=== PATIENT | male | born 1955 | race Caucasian/White ===

== ENCOUNTER 2018-12-02 16:49 | Emergency (ER) | payer OTHER, MEDICAID, SELFPAY ==
[2018-12-02 16:54] VITALS: BP 136/81; PULSE 87; RESP 18; TEMP 37.1; O2SAT 97; BMI 24.4
--- NOTE | 2018-12-02 17:00 | DI.RAD.S_ITS ---
PROCEDURE: XR ACUTE ABDOMEN SERIES INDICATIONS: L side abd pain, hx of polycynthemia and constipation TECHNIQUE: One view chest and two views of the abdomen were acquired. COMPARISON: None. FINDINGS: Surgical changes and devices: None. Chest: Lungs are clear. Heart size is normal. No pleural effusions. No pneumoperitoneum. Abdomen: Bowel gas pattern is normal. No suspicious calcifications. Splenomegaly is present. Bones: No suspicious bony lesions. IMPRESSION: 1. No acute process. 2. Splenomegaly. Dictated by: Chad Garcia M.D. on 12/02/2018 at 16:36 Approved by: Chad Garcia M.D. on 12/02/2018 at 16:37
[2018-12-02 17:41] LABS: Hematocrit 46.3 % (41-53); Hemoglobin 15.3 g/dL (13.5-17.5); Mean Corpuscular HGB Conc 33.1 % (30-36); Mean Corpuscular Volume 78.7 fL (80-100); Platelet Count 294 X10^3/uL (150-400); Red Blood Cell Count 5.89 X10^6/uL (4.5-5.9); Red Cell Distribution Width 18.5 % (11.6-14.8); White Blood Cell Count 9.4 X10^3/uL (4.5-11.0)
[2018-12-02 17:43] LABS: Add Manual Diff / Slide Review YES
[2018-12-02 17:45] LABS: INR 1.2 (0.9-1.3); Prothrombin Time 14.1 SECONDS (10.1-12.7)
[2018-12-02 17:48] LABS: PTT Partial Thromboplastin Tim 41 SECONDS (26.4-36.2)
[2018-12-02 17:50] LABS: Alanine Aminotransferase 15 IU/L (21-72); Albumin 4.5 g/dL (3.5-5.0); Albumin Globulin Ratio 1.7 (1.0-2.8); Alkaline Phosphatase 73 U/L (38-126); Aspartate Aminotransferase 19 IU/L (17-59); BUN Creatinine Ratio 16.7 (6-22); Bilirubin Total 0.7 mg/dL (0.2-1.3); Blood Urea Nitrogen 15 mg/dL (9-20); Calcium 9.3 mg/dL (8.4-10.2); Carbon Dioxide 31 mmol/L (22-32); Chloride 101 mmol/L (98-107); Estimated Glomerular Filt Rate > 60.0 mL/min (>60); Globulin 2.7 g/dL (1.7-4.1); Glucose 96 mg/dL (80-110); HEMOLYSIS < 15 (0-50); Potassium 4.9 mmol/L (3.4-5.1); Sodium 140 mmol/L (137-145); Total Protein 7.2 g/dL (6.3-8.2)
[2018-12-02 18:13] LABS: Neutrophils Absolute Manual 7144 /uL (3000-5900); Total Cells Counted 100
[2018-12-02 18:15] LABS: Anisocytosis 1+; Poikilocytosis 1+
--- NOTE | 2018-12-02 19:01 | DI.CT.S_ITS ---
PROCEDURE: CT ABDOMEN PELVIS W CON INDICATIONS: left uppper swelling pain with spleenomegaly TECHNIQUE: After the administration of oral and intravenous contrast, 5 mm thick sections acquired from the diaphragms to the symphysis. 5 mm thick coronal and sagittal reformats were performed. For radiation dose reduction, the following was used: automated exposure control, adjustment of mA and/or kV according to patient size. COMPARISON: [facility], CT, ABDOMEN/PELVIS WITH CONTRAST, 07/21/2015, 10:30. FINDINGS: Image quality: Diagnostic ABDOMEN: Lung bases: Lung bases are clear. Heart size is normal. Solid organs: The spleen is markedly enlarged and measures up to approximately 29 cm in craniocaudal dimension (previously measuring up to 23 cm in craniocaudal dimension. No focal splenic lesions are identified. However, there is a hypoechoic region identified along the posterolateral aspect of the inferior spleen, correlating with an area of possible laceration on the prior study. No perisplenic fluid is evident. The spleen is noted to extend into the pelvis. The liver is normal in size. A small hepatic cyst is present within the anterior segment of the right hepatic lobe. Cholelithiasis is present. The adrenals and kidneys are within normal limits. There is inferior displacement of the left kidney by the enlarged spleen with associated mass effect. The pancreas is within normal limits. Peritoneum and bowel: Stomach is unremarkable. The small bowel loops are nondilated. The colon is grossly within normal limits. The appendix is not definitely seen. No free fluid, loculated fluid collection or free air is evident. Nodes and vessels: No retroperitoneal or mesenteric adenopathy. Aorta and inferior vena cava are normal in caliber. There is aortic atherosclerosis. Bones: No acute fracture suspicious osseous lesions present. Age-appropriate degenerative changes of the spine are present. PELVIS: Genitourinary: Bladder wall thickness is normal. The prostate is mildly enlarged and contains coarse calcification. Miscellaneous: No inguinal hernias or adenopathy. Bones: No suspicious bony lesions. No acute pelvic fractures are identified. Mild to moderate degenerative changes of the pelvic joints are evident. IMPRESSION: 1. Marked splenomegaly, increased since the prior study. No evidence of an acute laceration or contusion is appreciated. 2. No ascites. 3. No bowel obstruction. 4. Enlarged prostate. 5. No lymphadenopathy. Dictated by: Jax Hong M.D. on 12/02/2018 at 19:58 Approved by: Jax Hong M.D. on 12/02/2018 at 20:04
--- NOTE | 2018-12-02 19:03 | ED.ABDPAIN ---
HPI - Abdominal Pain General Chief Complaint: Abdominal Pain Stated Complaint: Splene Time Seen by Provider: 12/02/18 18:48 Source: patient Mode of arrival: ambulatory Limitations: no limitations History of Present Illness HPI narrative: Patient is a 63-year-old male who presents with left upper quadrant pain and swelling. He says over last month it has gotten significantly worse. He says he would get blood drained off of him and his credit review officer wanted him to take hydroxyurea however he refused. The credit review officer has left it does not sound like he seen anyone since. He says his abdomen is getting bigger and more hard on left upper quadrant. He has not had any fever is he has very small bowel movements he has no vomiting no nausea. MD complaint: abdominal pain Related Data Home Medications Medication Instructions Recorded Confirmed [PROBIOTIC] 25,000,000 QDAY #0 01/11/17 aspirin 81 mg PO QDAY #0 01/11/17 12/02/18 ibuprofen 400 mg TIDP PRN #0 01/11/17 multivitamin [Multiple Vitamins] 1 tab PO QDAY #0 01/11/17 Allergies Allergy/AdvReac Type Severity Reaction Status Date / Time No Known Allergies Allergy Uncoded 09/27/17 12:45 Review of Systems Review of Systems GENERAL: Denies chills, fatigue, malaise, fever, sweats, travel HEENT: Denies sinus pain, ear pain, sore throat, difficulty swallowing, neck pain RESPIRATORY: Denies dyspnea, cough, wheezing, hemoptysis, sputum. CARDIOVASCULAR: Denies chest pain, palpitations, orthopnea, edema GASTROINTESTINAL: See HPI : Denies dysuria, frequency, incontinence, hematuria, urinary retention, flank pain. MUSCULOSKELETAL: Denies weakness, joint pain, or bony pain SKIN: No rash, no erythema, no pruritus NEUROLOGIC: Denies weakness, dizziness, headache, numbness, change in speech, confusion PSYCHIATRIC: No concerning psychosocial issues. 12 point review of systems is negative except for those stated above and HPI [facility] Medical History Polycythemia (Acute) Social History Smoking Status: Current every day smoker Social History Smoking Status: Current every day smoker Exam Initial Vital Signs Initial Vital Signs: Vital Signs Temperature 98.7 F 12/02/18 16:54 Pulse Rate 87 12/02/18 16:54 Respiratory Rate 18 12/02/18 16:54 Blood Pressure 136/81 12/02/18 16:54 Pulse Oximetry 97 12/02/18 16:54 GENERAL: Alert well-appearing male no acute distress HEENT: Head atraumatic,EOMI, pupils reactive CARDIOVASCULAR: Regular rate and rhythm without murmurs, rubs or gallops. RESPIRATORY: Breath sounds equal bilaterally, no wheezes rales or rhonchi. ABDOMEN: Abdomen is slightly distended and hard over on the left upper quadrant splenomegaly definitely present. soft in other quadrants EXTREMITIES: Normal range of motion, no clubbing or edema. Neurovascularly intact NEUROLOGICAL: Alert and oriented x4.Normal gait and speech. Cranial nerves II through XII grossly intact. SKIN: Warm, dry, no laceration, no petechiae, no rashes or lesions. Course Orders Ordered: ED Orders 12/02/18 17:00 XR acute abdomen series Stat 12/02/18 17:30 Complete Blood Count AUTO DIFF Stat Comprehensive Metabolic Panel Stat PT [Prothrombin Time INR] Stat Partial Thromboplastin Time Stat 12/02/18 19:01 CT abdomen pelvis w con Stat Vital Signs - 8 hr 12/02/18 20:12 Pulse Rate 64 Respiratory Rate 17 Blood Pressure [Right Arm] 119/65 Pulse Oximetry 95 MDM - Abdominal Pain Lab Data Attestation: I reviewed the patient's lab results. Result diagrams: 12/02/18 17:30 12/02/18 17:30 Lab Results 12/02/18 12/02/18 12/02/18 Range/Units 17:30 17:30 17:30 WBC 9.4 (4.5-11.0) X10^3/uL RBC 5.89 (4.5-5.9) X10^6/uL Hgb 15.3 (13.5-17.5) g/dL Hct 46.3 (41-53) % MCV 78.7 L (80-100) fL MCH 26.0 (26-34) PG MCHC 33.1 (30-36) % RDW 18.5 H (11.6-14.8) % Plt Count 294 (150-400) X10^3/uL Neut % (Auto) Not Reportable Lymph % (Auto) Not Reportable [place] % (Auto) Not Reportable Eos % (Auto) Not Reportable Baso % (Auto) Not Reportable Lymph # (Auto) Not Reportable [place] # (Auto) Not Reportable Baso # (Auto) Not Reportable Total Counted 100 Seg Neutrophils % 73.0 H (38-70) % Band Neutrophils % 3.0 (3-7) % Lymphocytes % (Manual) 11.0 L (25-45) % Monocytes % (Manual) 5.0 (2-11) % Eosinophils % (Manual) 3.0 (2-4) % Basophils % (Manual) 3.0 H (0-1) % Metamyelocytes % 1.0 H (-0) % Myelocytes % 1.0 H (-0) % Neutrophils # (Manual) 7144 H (8595-1456) /uL RBC Morphology See below Poikilocytosis 1+ H Anisocytosis 1+ H PT 14.1 H (10.1-12.7) SECONDS INR 1.2 (0.9-1.3) APTT 41 H (26.4-36.2) SECONDS Sodium 140 (137-145) mmol/L Potassium 4.9 (3.4-5.1) mmol/L Chloride 101 (98-107) mmol/L Carbon Dioxide 31 (22-32) mmol/L BUN 15 (9-20) mg/dL Creatinine 0.90 (0.66-1.25) mg/dL Estimated GFR > 60.0 (>60) mL/min BUN/Creatinine Ratio 16.7 (6-22) Glucose 96 (80-110) mg/dL Calcium 9.3 (8.4-10.2) mg/dL Total Bilirubin 0.7 (0.2-1.3) mg/dL AST 19 (17-59) IU/L ALT 15 L (21-72) IU/L Alkaline Phosphatase 73 (38-126) U/L Total Protein 7.2 (6.3-8.2) g/dL Albumin 4.5 (3.5-5.0) g/dL Globulin 2.7 (1.7-4.1) g/dL Albumin/Globulin Ratio 1.7 (1.0-2.8) Imaging Data Abdominal x-ray: Radiologist's impression: PROCEDURE: XR ACUTE ABDOMEN SERIES INDICATIONS: L side abd pain, hx of polycynthemia and constipation TECHNIQUE: One view chest and two views of the abdomen were acquired. COMPARISON: None. FINDINGS: Surgical changes and devices: None. Chest: Lungs are clear. Heart size is normal. No pleural effusions. No pneumoperitoneum. Abdomen: Bowel gas pattern is normal. No suspicious calcifications. Splenomegaly is present. Bones: No suspicious bony lesions. IMPRESSION: 1. No acute process. 2. Splenomegaly. Dictated by: Chad Garcia M.D. on 12/02/2018 at 16:36 CT scan - abdomen: Radiologist's impression: PROCEDURE: CT ABDOMEN PELVIS W CON INDICATIONS: left uppper swelling pain with spleenomegaly TECHNIQUE: After the administration of oral and intravenous contrast, 5 mm thick sections acquired from the diaphragms to the symphysis. 5 mm thick coronal and sagittal reformats were performed. For radiation dose reduction, the following was used: automated exposure control, adjustment of mA and/or kV according to patient size. COMPARISON: [facility], CT, ABDOMEN/PELVIS WITH CONTRAST, 07/21/2015, 10:30. FINDINGS: Image quality: Diagnostic ABDOMEN: Lung bases: Lung bases are clear. Heart size is normal. Solid organs: The spleen is markedly enlarged and measures up to approximately 29 cm in craniocaudal dimension (previously measuring up to 23 cm in craniocaudal dimension. No focal splenic lesions are identified. However, there is a hypoechoic region identified along the posterolateral aspect of the inferior spleen, correlating with an area of possible laceration on the prior study. No perisplenic fluid is evident. The spleen is noted to extend into the pelvis. The liver is normal in size. A small hepatic cyst is present within the anterior segment of the right hepatic lobe. Cholelithiasis is present. The adrenals and kidneys are within normal limits. There is inferior displacement of the left kidney by the enlarged spleen with associated mass effect. The pancreas is within normal limits. Peritoneum and bowel: Stomach is unremarkable. The small bowel loops are nondilated. The colon is grossly within normal limits. The appendix is not definitely seen. No free fluid, loculated fluid collection or free air is evident. Nodes and vessels: No retroperitoneal or mesenteric adenopathy. Aorta and inferior vena cava are normal in caliber. There is aortic atherosclerosis. Bones: No acute fracture suspicious osseous lesions present. Age-appropriate degenerative changes of the spine are present. PELVIS: Genitourinary: Bladder wall thickness is normal. The prostate is mildly enlarged and contains coarse calcification. Miscellaneous: No inguinal hernias or adenopathy. Bones: No suspicious bony lesions. No acute pelvic fractures are identified. Mild to moderate degenerative changes of the pelvic joints are evident. IMPRESSION: 1. Marked splenomegaly, increased since the prior study. No evidence of an acute laceration or contusion is appreciated. 2. No ascites. 3. No bowel obstruction. 4. Enlarged prostate. 5. No lymphadenopathy. Dictated by: Jax Hong M.D. on 12/02/2018 at 19:58 MDM Narrative Medical decision making narrative: The patient overall appears well. He has an extremely large spleen. I discussed with him the importance of getting back into Hematology-Oncology. He has in the past refused medication I discussed with him that he needs to take medication. I discussed with him how he cannot dissipate in any sort of risky activities and he is at high risk for rupture. He understands this. He will call Oncology in the morning. Discharge Plan Departure Patient Disposition: Home Clinical Impression: Splenomegaly Discharge Date/Time: 12/02/18 20:43 Interventions: ED Discharge Assessment Last Done: 12/02/18 20:42 Instructions: DI for Enlarged Spleen Activity Restrictions/Additional Instructions: *You have been diagnosed with enlarged spleen *What to do: Your spleen is extremely large. If this ruptures you have a risk of bleeding out or dying. Please avoid any high risk activities. *Continue to take medications as directed *Follow up with your primary care provider in 2-3 days. Call hematology 1st thing tomorrow morning to schedule an appointment. You may need a referral in which case please contact your primary care physician *Return to ER if you should have increasing pain, shortness of breath or any new, worsening or concerning symptoms Prescriptions: No Action multivitamin [Multiple Vitamins] 1 EACH tablet 1 tab PO QDAY Qty: 0 RF: 0 ibuprofen 200 MG capsule 400 mg TIDP PRNQty: 0 RF: 0 aspirin 81 MG tablet,chewable 81 mg PO QDAY Qty: 0 RF: 0 [PROBIOTIC] 25,000,000 QDAY Qty: 0 RF: 0 Referrals: Luis Fox MD [Physician] - Raoul Hair MD [Physician] - Issa Lowe MD [Physician] -
--- NOTE | 2018-12-02 19:08 | ED_ITS ---
HPI - Abdominal Pain General Chief Complaint: Abdominal Pain Stated Complaint: Splene Time Seen by Provider: 12/02/18 18:48 Source: patient Mode of arrival: ambulatory Limitations: no limitations History of Present Illness HPI narrative: Patient is a 63-year-old male who presents with left upper quadrant pain and swelling. He says over last month it has gotten significantly worse. He says he would get blood drained off of him and his solder leveler printed circuit boards wanted him to take hydroxyurea however he refused. The solder leveler printed circuit boards has left it does not sound like he seen anyone since. He says his abdomen is getting bigger and more hard on left upper quadrant. He has not had any fever is he has very small bowel movements he has no vomiting no nausea. MD complaint: abdominal pain Related Data Home Medications Medication Instructions Recorded Confirmed [PROBIOTIC] 25,000,000 QDAY #0 01/11/17 aspirin 81 mg PO QDAY #0 01/11/17 12/02/18 ibuprofen 400 mg TIDP PRN #0 01/11/17 multivitamin [Multiple Vitamins] 1 tab PO QDAY #0 01/11/17 Allergies Allergy/AdvReac Type Severity Reaction Status Date / Time No Known Allergies Allergy Uncoded 09/27/17 12:45 Review of Systems Review of Systems GENERAL: Denies chills, fatigue, malaise, fever, sweats, travel HEENT: Denies sinus pain, ear pain, sore throat, difficulty swallowing, neck pain RESPIRATORY: Denies dyspnea, cough, wheezing, hemoptysis, sputum. CARDIOVASCULAR: Denies chest pain, palpitations, orthopnea, edema GASTROINTESTINAL: See HPI : Denies dysuria, frequency, incontinence, hematuria, urinary retention, flank pain. MUSCULOSKELETAL: Denies weakness, joint pain, or bony pain SKIN: No rash, no erythema, no pruritus NEUROLOGIC: Denies weakness, dizziness, headache, numbness, change in speech, confusion PSYCHIATRIC: No concerning psychosocial issues. 12 point review of systems is negative except for those stated above and HPI [facility] Medical History Polycythemia (Acute) Social History Smoking Status: Current every day smoker Social History Smoking Status: Current every day smoker Exam Initial Vital Signs Initial Vital Signs: Vital Signs Temperature 98.7 F 12/02/18 16:54 Pulse Rate 87 12/02/18 16:54 Respiratory Rate 18 12/02/18 16:54 Blood Pressure 136/81 12/02/18 16:54 Pulse Oximetry 97 12/02/18 16:54 GENERAL: Alert well-appearing male no acute distress HEENT: Head atraumatic,EOMI, pupils reactive CARDIOVASCULAR: Regular rate and rhythm without murmurs, rubs or gallops. RESPIRATORY: Breath sounds equal bilaterally, no wheezes rales or rhonchi. ABDOMEN: Abdomen is slightly distended and hard over on the left upper quadrant splenomegaly definitely present. soft in other quadrants EXTREMITIES: Normal range of motion, no clubbing or edema. Neurovascularly intact NEUROLOGICAL: Alert and oriented x4.Normal gait and speech. Cranial nerves II through XII grossly intact. SKIN: Warm, dry, no laceration, no petechiae, no rashes or lesions. Course Orders Ordered: ED Orders 12/02/18 17:00 XR acute abdomen series Stat 12/02/18 17:30 Complete Blood Count AUTO DIFF Stat Comprehensive Metabolic Panel Stat PT [Prothrombin Time INR] Stat Partial Thromboplastin Time Stat 12/02/18 19:01 CT abdomen pelvis w con Stat Vital Signs - 8 hr 12/02/18 20:12 Pulse Rate 64 Respiratory Rate 17 Blood Pressure [Right Arm] 119/65 Pulse Oximetry 95 MDM - Abdominal Pain Lab Data Attestation: I reviewed the patient's lab results. Result diagrams: 12/02/18 17:30 12/02/18 17:30 Lab Results 12/02/18 12/02/18 12/02/18 Range/Units 17:30 17:30 17:30 WBC 9.4 (4.5-11.0) X10^3/uL RBC 5.89 (4.5-5.9) X10^6/uL Hgb 15.3 (13.5-17.5) g/dL Hct 46.3 (41-53) % MCV 78.7 L (80-100) fL MCH 26.0 (26-34) PG MCHC 33.1 (30-36) % RDW 18.5 H (11.6-14.8) % Plt Count 294 (150-400) X10^3/uL Neut % (Auto) Not Reportable Lymph % (Auto) Not Reportable [place] % (Auto) Not Reportable Eos % (Auto) Not Reportable Baso % (Auto) Not Reportable Lymph # (Auto) Not Reportable [place] # (Auto) Not Reportable Baso # (Auto) Not Reportable Total Counted 100 Seg Neutrophils % 73.0 H (38-70) % Band Neutrophils % 3.0 (3-7) % Lymphocytes % (Manual) 11.0 L (25-45) % Monocytes % (Manual) 5.0 (2-11) % Eosinophils % (Manual) 3.0 (2-4) % Basophils % (Manual) 3.0 H (0-1) % Metamyelocytes % 1.0 H (-0) % Myelocytes % 1.0 H (-0) % Neutrophils # (Manual) 7144 H (2027-9248) /uL RBC Morphology See below Poikilocytosis 1+ H Anisocytosis 1+ H PT 14.1 H (10.1-12.7) SECONDS INR 1.2 (0.9-1.3) APTT 41 H (26.4-36.2) SECONDS Sodium 140 (137-145) mmol/L Potassium 4.9 (3.4-5.1) mmol/L Chloride 101 (98-107) mmol/L Carbon Dioxide 31 (22-32) mmol/L BUN 15 (9-20) mg/dL Creatinine 0.90 (0.66-1.25) mg/dL Estimated GFR > 60.0 (>60) mL/min BUN/Creatinine Ratio 16.7 (6-22) Glucose 96 (80-110) mg/dL Calcium 9.3 (8.4-10.2) mg/dL Total Bilirubin 0.7 (0.2-1.3) mg/dL AST 19 (17-59) IU/L ALT 15 L (21-72) IU/L Alkaline Phosphatase 73 (38-126) U/L Total Protein 7.2 (6.3-8.2) g/dL Albumin 4.5 (3.5-5.0) g/dL Globulin 2.7 (1.7-4.1) g/dL Albumin/Globulin Ratio 1.7 (1.0-2.8) Imaging Data Abdominal x-ray: Radiologist's impression: PROCEDURE: XR ACUTE ABDOMEN SERIES INDICATIONS: L side abd pain, hx of polycynthemia and constipation TECHNIQUE: One view chest and two views of the abdomen were acquired. COMPARISON: None. FINDINGS: Surgical changes and devices: None. Chest: Lungs are clear. Heart size is normal. No pleural effusions. No pneumoperitoneum. Abdomen: Bowel gas pattern is normal. No suspicious calcifications. Splenomegaly is present. Bones: No suspicious bony lesions. IMPRESSION: 1. No acute process. 2. Splenomegaly. Dictated by: Chad Garcia M.D. on 12/02/2018 at 16:36 CT scan - abdomen: Radiologist's impression: PROCEDURE: CT ABDOMEN PELVIS W CON INDICATIONS: left uppper swelling pain with spleenomegaly TECHNIQUE: After the administration of oral and intravenous contrast, 5 mm thick sections acquired from the diaphragms to the symphysis. 5 mm thick coronal and sagittal reformats were performed. For radiation dose reduction, the following was used: automated exposure control, adjustment of mA and/or kV according to patient size. COMPARISON: [facility], CT, ABDOMEN/PELVIS WITH CONTRAST, 07/21/2015, 10:30. FINDINGS: Image quality: Diagnostic ABDOMEN: Lung bases: Lung bases are clear. Heart size is normal. Solid organs: The spleen is markedly enlarged and measures up to approximately 29 cm in craniocaudal dimension (previously measuring up to 23 cm in craniocaudal dimension. No focal splenic lesions are identified. However, there is a hypoechoic region identified along the posterolateral aspect of the inferior spleen, correlating with an area of possible laceration on the prior study. No perisplenic fluid is evident. The spleen is noted to extend into the pelvis. The liver is normal in size. A small hepatic cyst is present within the anterior segment of the right hepatic lobe. Cholelithiasis is present. The adrenals and kidneys are within normal limits. There is inferior displacement of the left kidney by the enlarged spleen with associated mass effect. The pancreas is within normal limits. Peritoneum and bowel: Stomach is unremarkable. The small bowel loops are nondilated. The colon is grossly within normal limits. The appendix is not definitely seen. No free fluid, loculated fluid collection or free air is evident. Nodes and vessels: No retroperitoneal or mesenteric adenopathy. Aorta and i nferior vena cava are normal in caliber. There is aortic atherosclerosis. Bones: No acute fracture suspicious osseous lesions present. Age-appropriate degenerative changes of the spine are present. PELVIS: Genitourinary: Bladder wall thickness is normal. The prostate is mildly enlar ged and contains coarse calcification. Miscellaneous: No inguinal hernias or adenopathy. Bones: No suspicious bony lesions. No acute pelvic fractures are identified. Mild to moderate degenerative changes of the pelvic joints are evident. IMPRESSION: 1. Marked splenomegaly, increased since the prior study. No evidence of an acute laceration or contusion is appreciated. 2. No ascites. 3. No bowel obstruction. 4. Enlarged prostate. 5. No lymphadenopathy. Dictated by: Jax Hong M.D. on 12/02/2018 at 19:58 MDM Narrative Medical decision making narrative: The patient overall appears well. He has an extremely large spleen. I discussed with him the importance of getting back into Hematology-Oncology. He has in the past refused medication I discussed with him that he needs to take medication. I discussed with him how he cannot dissipate in any sort of risky activities and he is at high risk for rupture. He understands this. He will call Oncology in the morning. Discharge Plan Departure Patient Disposition: Home Clinical Impression: Splenomegaly Discharge Date/Time: 12/02/18 20:43 Interventions: ED Discharge Assessment Last Done: 12/02/18 20:42 Instructions: DI for Enlarged Spleen Activity Restrictions/Additional Instructions: *You have been diagnosed with enlarged spleen *What to do: Your spleen is extremely large. If this ruptures you have a risk of bleeding out or dying. Please avoid any high risk activities. *Continue to take medications as directed *Follow up with your primary care provider in 2-3 days. Call hematology 1st thing tomorrow morning to schedule an appointment. You may need a referral in which case please contact your primary care physician *Return to ER if you should have increasing pain, shortness of breath or any new, worsening or concerning symptoms Prescriptions: No Action multivitamin [Multiple Vitamins] 1 EACH tablet 1 tab PO QDAY Qty: 0 RF: 0 ibuprofen 200 MG capsule 400 mg TIDP PRNQty: 0 RF: 0 aspirin 81 MG tablet,chewable 81 mg PO QDAY Qty: 0 RF: 0 [PROBIOTIC] 25,000,000 QDAY Qty: 0 RF: 0 Referrals: Luis Fox MD [Physician] - Raoul Hair MD [Physician] - Issa Lowe MD [Physician] -
[2018-12-02 20:12] VITALS: BP 119/65; PULSE 64; RESP 17; O2SAT 95
== END 2018-12-02 20:43 | disposition home or self-care (01) ==
PROVIDERS: Emergency Medicine; Emergency Provider Emergency Medicine
DX: R16.1 Splenomegaly, not elsewhere classified (principal)
CPT/HCPCS: 36415; 74022; 74177; 80053; 85025; 85610; 85730; 99282; 99284; Q9967

== ENCOUNTER → 2018-12-11 11:45 | Outpatient (CLI) | payer OTHER, MEDICAID, SELFPAY ==
[2018-12-11 12:09] LABS: Hematocrit 47.8 % (41-53); Hemoglobin 15.7 g/dL (13.5-17.5); Mean Corpuscular HGB Conc 32.8 % (30-36); Mean Corpuscular Hemoglobin 25.7 PG (26-34); Mean Corpuscular Volume 78.2 fL (80-100); Platelet Count 355 X10^3/uL (150-400); Red Blood Cell Count 6.11 X10^6/uL (4.5-5.9); Red Cell Distribution Width 18.5 % (11.6-14.8); White Blood Cell Count 11.3 X10^3/uL (4.5-11.0)
[2018-12-11 12:11] LABS: Add Manual Diff / Slide Review YES
[2018-12-11 12:36] LABS: 585 Gram Check PASS; Amount Collected in g 585 GRAM; Dizziness NO; Postdiastolic BP 89; Postsystolic BP 140; Prediastolic 91; Presystolic 145; Pulse 87; Site of phlebotomy LAC; Swelling NO; Therapeutic Phleb Comment NO COMMENT; Zero Check Sebra Scale PASS
[2018-12-11 12:58] LABS: Neutrophils Absolute Manual 9040 /uL (3000-5900); Total Cells Counted 100
[2018-12-11 13:03] LABS: RBC Morphology Normal Morphology
[2018-12-11 13:45] LABS: Alanine Aminotransferase 19 IU/L (21-72); Albumin 4.5 g/dL (3.5-5.0); Albumin Globulin Ratio 1.6 (1.0-2.8); Alkaline Phosphatase 88 U/L (38-126); Aspartate Aminotransferase 20 IU/L (17-59); BUN Creatinine Ratio 17.8 (6-22); Blood Urea Nitrogen 16 mg/dL (9-20); Calcium 9.2 mg/dL (8.4-10.2); Carbon Dioxide 29 mmol/L (22-32); Chloride 101 mmol/L (98-107); Estimated Glomerular Filt Rate > 60.0 mL/min (>60); Globulin 2.8 g/dL (1.7-4.1); Glucose 76 mg/dL (80-110); HEMOLYSIS < 15 (0-50); Potassium 4.3 mmol/L (3.4-5.1); Sodium 141 mmol/L (137-145); Total Protein 7.3 g/dL (6.3-8.2)
== END ==
DX: D45 Polycythemia vera (principal)
CPT/HCPCS: 36415; 80053; 85025; 99195

== ENCOUNTER 2020-03-01 09:12 | Emergency (ER) | payer OTHER, MEDICAID, SELFPAY ==
--- NOTE | 2020-03-01 09:21 | ED_ITS ---
HPI - Extremity Injury (Lower) General Chief Complaint: Extremity Injury, Lower Stated Complaint: Suspects broken left ankle Time Seen by Provider: 03/01/20 09:12 Source: patient Mode of arrival: Wheelchair Limitations: no limitations History of Present Illness HPI Narrative: 65-year-old male smoker with noncontributory medical history presents with a chief complaint of severe left ankle pain since yesterday. He states he was walking and stumbled, rolling forward and came to a stop with his right leg extended and left a bit flexed. He states he has significant pain on his lateral ankle with some swelling and is concerned he broke his ankle. His pain is worse with ambulation and he cannot put weight on it. He denies any pain in his knee, hip or back. He is otherwise well and free of complaint. He denies any head injury. He has no chest pain or shortness of breath. MD complaint: ankle injury Onset (ago): hour(s) Type of Injury: blunt and inversion Place: street/outdoors Severity: moderate Relieving factors: rest Exacerbating factors: weight bearing, movement and palpation Context: fall and direct blow Associated symptoms: snap/pop sensation Other symptoms: none Treatments prior to arrival: cold therapy Related Data Home Medications Medication Instructions Recorded Confirmed [PROBIOTIC] 25,000,000 QDAY #0 01/11/17 aspirin 81 mg PO QDAY #0 01/11/17 01/30/19 ibuprofen 400 mg TIDP PRN #0 01/11/17 01/30/19 multivitamin [Multiple Vitamins] 1 tab PO QDAY #0 01/11/17 01/30/19 polyethylene glycol 3350 [Miralax] 17 g DAILY 01/30/19 01/30/19 Allergies Allergy/AdvReac Type Severity Reaction Status Date / Time No Known Allergies Allergy Uncoded 04/02/19 12:35 Review of Systems Constitutional Constitutional: Denies chills, Denies fatigue, Denies fever(s), Denies frequent falls, Denies lethargy and Denies weakness Eyes Eyes: Denies change in vision, Denies eye discharge, Denies irritation and Denies loss of vision ENT Ears, Nose, Mouth, and Throat: Denies change in voice, Denies dizziness, Denies neck pain, Denies sore throat and Denies throat swelling Cardiovascular Cardiovascular: Denies chest pain, Denies irregular heart rhythm, Denies lightheadedness, Denies palpitations, Denies dyspnea, Denies dyspnea on exertion and Denies orthopnea Respiratory Respiratory: Denies cough, Denies dyspnea, Denies dyspnea on exertion and Denies wheezing Gastrointestinal Gastrointestinal: Denies abdominal pain, Denies change in bowel habits, Denies diarrhea, Denies nausea and Denies vomiting Musculoskeletal Musculoskeletal: Reports arthralgias, Reports joint swelling, Denies neck pain and Denies numbness Integumentary/Breasts Skin/Breast: Denies pruritus, Denies erythema, Denies rash and Denies wounds Neurologic Neurologic: Denies behavioral changes, Denies confusion, Denies dizziness, Denies frequent falls, Denies loss of vision, Denies numbness and Denies weakness Psychiatric Psychiatric: Denies anxiety, Denies behavioral changes, Denies confusion, Denies depression, Denies homicidal ideation and Denies suicidal ideation Endocrine Endocrine: Denies fatigue, Denies flushing and Denies palpitations Hematologic/Lymphatic Hematologic/Lymphatic: Denies easy bruising Allergic/Immunologic Allergic/Immunologic: Denies urticaria, Denies throat swelling and Denies wheezing Patient History Medical History Polycythemia (Acute) Social History Smoking Status: Current every day smoker Smoking Status: Current every day smoker alcohol intake frequency: holidays/special occasions only Substance Use Type: marijuana Exam Narrative Exam Narrative: GENERAL: [] 65 year old patient appears stated age. Well- nourished, well-developed patient, in mild distress. GCS 15 HEAD: Atraumatic. Normocephalic. EYES: Pupils equal round and reactive. Extraocular motions intact. No scleral icterus. No injection or drainage. ENT: Nose without bleeding, purulent drainage. Throat without erythema, tonsillar hypertrophy or exudate. Airway patent. NECK: Trachea midline. Non tender CARDIOVASCULAR: Regular rate and rhythm without murmurs, gallops, or rubs. RESPIRATORY: Clear to auscultation. Breath sounds equal bilaterally. No wheezes, rales, or rhonchi. GASTROINTESTINAL: Abdomen soft, non-tender, nondistended. EXTREMITIES: Mild swelling and tenderness to palpation over the lateral malleolus. No pain over talu. Some pain with palpation or attempted range of motion of the calcaneus BACK: Nontender without deformity or crepitance. No flank tenderness. NEURO: AOx3. SKIN: No rash or erythema of visible areas Initial Vital Signs Initial Vital Signs: Vital Signs Temperature 98.1 F 03/01/20 09:44 Pulse Rate 77 03/01/20 09:44 Respiratory Rate 14 03/01/20 09:44 Blood Pressure 149/80 H 03/01/20 09:44 Pulse Oximetry 98 03/01/20 09:44 Procedures Orthopedic Splinting/Casting Injury #1: Side: left Lower Extremity Injury Location: ankle Lower Extremity Immobilizer: posterior splint Other Orthopedic Equipment: crutches Post splinting neuro exam: intact Post splinting vascular exam: intact Placed by: Nursing Additional Comments: Significant extra padding placed over the heel Course Orders Ordered: ED Orders 03/01/20 09:23 XR ankle LT min 3V Stat 03/01/20 10:54 CT LE LT wo con Stat Consultations Consultation #1: Consultation with orthopedist, after reviewing films there was recommendation to put significant padding around ankle with the use of a posterior mold OCL Vital Signs Vital signs: Vital Signs - 8 hr 03/01/20 09:44 03/01/20 12:43 Temperature 98.1 F Pulse Rate 77 72 Respiratory Rate 14 12 Blood Pressure 149/80 H 158/81 H Pulse Oximetry 98 98 MDM - Extremity Injury (Lower) Imaging Data Extremity x-ray #1: Radiologist's Impression: [address] [address] XRay Report Signed Patient: Miya III,WalterMR#: [id number] : 1955cct:[id number] Age/Sex: 65 / MDate of Service: 03/01/20 Loc: ED Accession Number: [id number] Procedure: XR ankle LT min 3V Ordering Provider: Dhruv Pereira D.O. PROCEDURE: XR ANKLE LT MIN 3V INDICATIONS: rolled ankle, severe pain over lateral mall TECHNIQUE: 3 views of the ankle were acquired. COMPARISON: [facility], ANKLE 3 VIEWS LEFT, 01/11/2017, 9:40. FINDINGS: Bones: Markedly comminuted calcaneal fracture. No other fractures or dislocations. Ankle mortise is normally aligned. No suspicious bony lesions. Soft tissues: No tibiotalar joint effusion. Achilles tendon appears normal. IMPRESSION: Markedly comminuted calcaneal fracture. Dictated by: Antonio Tirado M.D. on 03/01/2020 at 9:18 Approved by: Antonio Tirado M.D. on 03/01/2020 at 9:20 CT Extremity: Radiologist's Impression: [address] [address] [address] Scan Report Signed Patient: Miya III,WalterMR#: [id number] : 7Acct:[id number] Age/Sex: 65 / MDate of Service: 03/01/20 Loc: ED Accession Number: [id number] Procedure: CT LE LT wo con Ordering Provider: Dhruv Pereira D.O. PROCEDURE: CT LE LT W CON INDICATIONS: calcaneous fracture, request per ortho TECHNIQUE: Noncontrast 1-1.5 mm axial sections acquired from above the tibiotalar joint to the bottom of the calcaneus, with coronal and sagittal reformats. COMPARISON: None. FINDINGS: Image quality: Excellent. Bones: Markedly comminuted calcaneal fracture. There is a nondisplaced fracture line which extends to the anterior talocalcaneal articulation. There may also be a very subtle fracture line extending to the sinus tarsi. There is no fracture line extending to the articulation with the cuboid bone. Soft tissues: Unremarkable IMPRESSION: Markedly comminuted fracture of the calcaneus with minimal extension to an articular surface. Dictated by: Antonio Tirado M.D. on 03/01/2020 at 10:54 Approved by: Antonio Tirado M.D. on 03/01/2020 at 11:00 Discharge Plan Departure Patient Disposition: Home Clinical Impression: Closed fracture of heel bone Discharge Date/Time: 03/01/20 12:44 Instructions: DI for Ankle Sprain, DI for Calcaneus Fracture Activity Restrictions/Additional Instructions: *You have been diagnosed with [left heel fracture] *What to do: *Take medications as directed: Tylenol or Motrin for pain *NO WEIGHT BEARING *Follow up with [facility], this may need surgical intervention. Call tomorrow morning for an appointment *Return to ER if you should have any new, worsening or concerning symptoms Splint Care: Keep splint clean and dry. Elevated affected body part to decrease swelling. OK to use ice pack on the affected body part. Use for 15-20 minutes each time, for 5-6x per day. If you develop worsening pain, numbness, tingling, discoloration of the affected body part, loosen the splint by loosening the JAKI wrap, and either see your doctor for an urgent re-assessment, or return to the Emergency Department. Return to the Emergency Department for any new or worsening symptoms. Prescriptions: No Action multivitamin [Multiple Vitamins] 1 EACH tablet 1 tab PO QDAY Qty: 0 RF: 0 ibuprofen 200 MG capsule 400 mg TIDP PRN (Reason: Pain (Scale Score 1-3)) Qty: 0 RF: 0 aspirin 81 MG tablet,chewable 81 mg PO QDAY Qty: 0 RF: 0 [PROBIOTIC] 25,000,000 QDAY Qty: 0 RF: 0 polyethylene glycol 3350 [Miralax] 17 gram/dose Powder 17 g DAILY RF: 0 Referrals: Luis Fox MD [Primary Care Provider] - Laura Schneider MD [Physician] -
--- NOTE | 2020-03-01 09:34 | PC.NURSE ---
provider saw patient in waiting room prior to ED triage nurse, ordered xray.
[2020-03-01 09:44] VITALS: BP 149/80; PULSE 77; RESP 14; TEMP 36.7; O2SAT 98; BMI 25.0
--- NOTE | 2020-03-01 10:54 | DI.CT.S_ITS ---
PROCEDURE: CT LE LT W CON INDICATIONS: calcaneous fracture, request per ortho TECHNIQUE: Noncontrast 1-1.5 mm axial sections acquired from above the tibiotalar joint to the bottom of the calcaneus, with coronal and sagittal reformats. COMPARISON: None. FINDINGS: Image quality: Excellent. Bones: Markedly comminuted calcaneal fracture. There is a nondisplaced fracture line which extends to the anterior talocalcaneal articulation. There may also be a very subtle fracture line extending to the sinus tarsi. There is no fracture line extending to the articulation with the cuboid bone. Soft tissues: Unremarkable IMPRESSION: Markedly comminuted fracture of the calcaneus with minimal extension to an articular surface. Dictated by: Antonio Tirado M.D. on 03/01/2020 at 10:54 Approved by: Antonio Tirado M.D. on 03/01/2020 at 11:00
[2020-03-01 12:43] VITALS: BP 158/81; PULSE 72; RESP 12; O2SAT 98
== END 2020-03-01 12:44 | disposition home or self-care (01) ==
PROVIDERS: Emergency Provider Emergency Medicine; Family Provider Family Medicine
DX: S92.002A Unspecified fracture of left calcaneus, initial encounter for closed fracture (principal); W19.XXXA Unspecified fall, initial encounter
CPT/HCPCS: 29515; 73610; 73700; 99283

== ENCOUNTER 2022-06-08 12:12 | Emergency (ER) | payer OTHER, MEDICAID, SELFPAY ==
[2022-06-08 12:20] VITALS: BP 151/75; PULSE 87; RESP 15; TEMP 37.1; O2SAT 99; BMI 24.4
--- NOTE | 2022-06-08 12:23 | DI.RAD.S_ITS ---
PROCEDURE: XR FOOT LT MIN 3V INDICATIONS: foot injury TECHNIQUE: 3 views of the foot were acquired. COMPARISON: [facility] [place], CR, XR CALCANEUS LEFT, 05/12/2020, 14:30. [facility] [place], CR, XR ANKLE 3+ VIEWS LEFT, 05/12/2020, 14:35. FINDINGS: Bones: No fractures or dislocations. Mild degenerative changes. No suspicious bony lesions. Soft tissues: No tibiotalar joint effusion. Achilles tendon appears normal. IMPRESSION: No acute osseous abnormality. Dictated by: Hitesh Hewitt M.D. on 06/08/2022 at 12:38 Approved by: Hitesh Hewitt M.D. on 06/08/2022 at 12:41
--- NOTE | 2022-06-08 12:50 | ED.LOWEXIN ---
HPI - Extremity Injury (Lower) <Abilio Pena PA-C - Last Filed: 06/08/22 12:58> General Chief Complaint: Extremity Injury, Lower Stated Complaint: lt foot injury Time Seen by Provider: 06/08/22 12:49 Source: patient Mode of arrival: Ambulatory History of Present Illness HPI Narrative: This is a 67-year-old male presents to the emergency department due to left foot pain after propane tank fell on his foot. Also complaining of a right zuniga abrasion. States that his tetanus is up-to-date. Patient denies any numbness in the foot. States that for painting fell from the bed of a truck. No difficulty moving toes. No other injuries. Related Data Home Medications Medication Instructions Recorded Confirmed [PROBIOTIC] 25,000,000 unit QDAY ##0 01/11/17 09/16/20 aspirin 81 mg chewable tablet 81 mg PO QDAY ##0 01/11/17 09/16/20 ibuprofen 200 mg capsule 400 mg TIDP PRN Pain (Scale Score 01/11/17 09/16/20 1-3) ##0 polyethylene glycol 3350 17 17 g DAILY 01/30/19 09/16/20 gram/dose oral powder (Miralax) capsicum (cayenne) 447 mg capsule mg PO 03/09/21 echinacea 250 mg capsule 250 mg PO DAILY 03/09/21 03/09/21 garlic 2,000 mg PO DAILY 03/09/21 03/09/21 Previous Rx's Medication Instructions Recorded hydroxyurea 500 mg capsule (Hydrea) 1,000 mg PO DAILY #60 caps 05/19/20 hydroxyurea 500 mg capsule (Hydrea) 1,000 mg PO DAILY #180 caps 07/15/20 Allergies Allergy/AdvReac Type Severity Reaction Status Date / Time No Known Drug Allergies Allergy Verified 06/08/22 12:20 Review of Systems <Abilio Pena PA-C - Last Filed: 06/08/22 12:58> Review of Systems Narrative: GENERAL: Denies chills, fatigue, malaise, fever, sweats. HEENT: Denies sinus pain, ear pain, sore throat, difficulty swallowing, dizziness. RESPIRATORY: Denies dyspnea, cough, wheezing, hemoptysis, sputum. CARDIOVASCULAR: Denies chest pain, palpitations, orthopnea, edema, GASTROINTESTINAL: Denies nausea, vomiting, abdominal pain, diarrhea, constipation, melena. : Denies dysuria, frequency, incontinence, hematuria, urinary retention. MUSCULOSKELETAL: Left foot pain SKIN: Right zuniga abrasion NEUROLOGIC: Denies weakness, headache, numbness, change in speech, confusion, seizures, incoordination. PSYCHIATRIC: No concerning psychosocial issues. 12 point review of systems is negative except for those stated above Patient History <Abilio Pena PA-C - Last Filed: 06/08/22 12:58> Medical History (Updated 06/08/22 @ 12:58 by Abilio Pena PA-C) Polycythemia Social History Smoking Status: Current every day smoker Smoking Status: Current every day smoker alcohol intake frequency: holidays/special occasions only Substance Use Type: marijuana Exam <Abilio Pena PA-C - Last Filed: 06/08/22 12:58> Narrative Exam Narrative: GENERAL: Well-developed patient, in mild distress. HEAD: Atraumatic. Normocephalic. EYES: Pupils equal round and reactive. Extraocular motions intact. No scleral icterus. No injection or drainage. ENT: Nose without bleeding, purulent drainage. Throat without erythema, tonsillar hypertrophy or exudate. Airway patent. NECK: Trachea midline. Non tender CARDIOVASCULAR: Regular rate and rhythm without murmurs, gallops, or rubs. RESPIRATORY: Clear to auscultation. Breath sounds equal bilaterally. No wheezes, rales, or rhonchi. GASTROINTESTINAL: Abdomen soft, non-tender, nondistended. EXTREMITIES: Tenderness to palpation to the proximal dorsal aspect of the left foot. No break in the skin, very mild ecchymosis. BACK: Nontender without deformity or crepitance. No flank tenderness. NEURO: AOx3. SKIN: Superficial abrasion to right zuniga, minimal surrounding erythema Initial Vital Signs Initial Vital Signs: Vital Signs Temperature 98.7 F 06/08/22 12:20 Pulse Rate 87 06/08/22 12:20 Respiratory Rate 15 06/08/22 12:20 Blood Pressure 151/75 H 06/08/22 12:20 Pulse Oximetry 99 06/08/22 12:20 Oxygen Delivery Method 06/08/22 12:20 <Joselin Lara DO - Last Filed: 06/13/22 07:17> Initial Vital Signs Initial Vital Signs: Vital Signs Temperature 98.7 F 06/08/22 12:20 Pulse Rate 87 06/08/22 12:20 Respiratory Rate 15 06/08/22 12:20 Blood Pressure 151/75 H 06/08/22 12:20 Pulse Oximetry 99 06/08/22 12:20 Oxygen Delivery Method 06/08/22 12:20 Course <Abilio Pena PA-C - Last Filed: 06/08/22 12:58> Orders Ordered: ED Orders 06/08/22 12:23 XR foot LT min 3V Stat Vital Signs Vital signs: Vital Signs - 8 hr 06/08/22 12:20 Temperature 98.7 F Pulse Rate 87 Respiratory Rate 15 Blood Pressure 151/75 H Pulse Oximetry 99 Oxygen Delivery Method Room Air <Joselin Lara DO - Last Filed: 06/13/22 07:17> Orders Ordered: ED Orders 06/08/22 12:23 XR foot LT min 3V Stat Vital Signs Vital signs: Vital Signs - 8 hr 06/08/22 12:20 Temperature 98.7 F Pulse Rate 87 Respiratory Rate 15 Blood Pressure 151/75 H Pulse Oximetry 99 Oxygen Delivery Method Room Air MDM - Extremity Injury (Lower) <Abilio Pena PA-C - Last Filed: 06/08/22 12:58> Imaging Data Extremity x-ray #1: Radiologist's Impression: [address] [address] XRay Report Signed Patient: Mitchell Holliday III MR#: [id number] : 1955 Acct:[id number] Age/Sex: 67 / M Date of Service: 06/08/22 Loc: ED Accession Number: [id number] ?? Procedure: XR foot LT min 3V Ordering Provider: Joselin Lara D.O. PROCEDURE:? XR FOOT LT MIN 3V ? INDICATIONS:? foot injury ? TECHNIQUE:? 3 views of the foot were acquired.? ? COMPARISON:? [facility] [place], CR, XR CALCANEUS LEFT, 05/12/2020, 14:30.? [facility] [place], CR, XR ANKLE 3+ VIEWS LEFT, 05/12/2020, 14:35. ? FINDINGS:? ? Bones:? No fractures or dislocations.? Mild degenerative changes.? No suspicious bony lesions.? ? Soft tissues:? No tibiotalar joint effusion.? Achilles tendon appears normal.? ? ? IMPRESSION:? No acute osseous abnormality. ? ? Dictated by: Hitesh Hewitt M.D. on 06/08/2022 at 12:38 ? ? Approved by: Hitesh Hewitt M.D. on 06/08/2022 at 12:41 ? MDM Narrative Medical decision making narrative: This is a 67-year-old male presenting to the emergency department due to primarily left foot pain after blunt injury. X-rays negative for any fractures. Recommended conservative management. Patient also has a superficial scabbed over abrasion to the right zuniga, patient states that his tetanus is up-to-date. Patient was neurovascularly intact throughout. Discharge Plan Departure Patient Disposition: Home Clinical Impression: Acute foot pain Instructions: DI for Contusion Activity Restrictions/Additional Instructions: Thank you for coming to the [facility] Emergency Department today. The x-ray was negative for any fractures. Please use ibuprofen and Tylenol as needed for the pain. Elevation and ice may help as well. I hope you feel better soon. Prescriptions: No Action ibuprofen 200 MG capsule 400 mg TIDP PRN (Reason: Pain (Scale Score 1-3)) Qty: 0 aspirin 81 MG tablet,chewable 81 mg PO QDAY Qty: 0 [PROBIOTIC] 25,000,000 unit QDAY Qty: 0 polyethylene glycol 3350 [Miralax] 17 gram/dose Powder 17 g DAILY hydroxyurea [Hydrea] 500 mg Capsule 1,000 mg PO DAILY Qty: 60 12RF hydroxyurea [Hydrea] 500 mg Capsule 1,000 mg PO DAILY Qty: 180 3RF [place] PDR 447 mg Capsule PO Rx Instructions: pt unsure of dose garlic Capsule 2,000 mg PO DAILY Label Comments: pt unsure of dose echinacea 250 mg Capsule 250 mg PO DAILY Label Comments: PT UNSURE OF DOSE Referrals: Savage Malin MD [Primary Care Provider] - Visit Report Forms: Patient Portal/API <Joselin Lara DO - Last Filed: 06/13/22 07:17> Cosign ED Attending Cosignature Attestation: I was immediately available in the department for consultation. Documentation has been reviewed. I agree with assessment and plan.
== END 2022-06-08 13:20 | disposition home or self-care (01) ==
PROVIDERS: Emergency Provider Physician Assistant Medical; Family Provider Family Medicine; PCP Internal Medicine Medical Oncology
DX: S80.811A Abrasion, right lower leg, initial encounter (principal); M79.672 Pain in left foot; W22.8XXA Striking against or struck by other objects, initial encounter
CPT/HCPCS: 73630; 99281; 99283

== ENCOUNTER 2023-04-14 07:33 | Emergency (ER) | payer MEDICARE, SELFPAY ==
[2023-04-14] VITALS (31 sets, daily range): BP systolic 133–162; BP diastolic 73–84; PULSE 70–79; RESP 18–30; TEMP 36.5; O2SAT 94–100; BMI 25.0
--- NOTE | 2023-04-14 07:37 | ED.GENADULT ---
HPI - General Adult General Chief complaint: Abdominal Pain Stated complaint: HX enlarged spleen/ discomfort/pain Time Seen by Provider: 04/14/23 07:37 History of Present Illness HPI narrative: 68-year-old male former smoker with history of polycythemia vera and prior enlarged spleen presents with family in the chief complaint of severe lower abdominal pain and abdominal distention. There is report that he was jaundiced a few days ago but that has since resolved. He denies fever or chills. Denies nausea, vomiting or diarrhea. He denies any chest pain or shortness of breath. He has not had any specific treatment for his polycythemia such as hydroxyurea in quite some time but states that he had brought his hematocrit down with homeopathic techniques. He denies any history of alcohol and takes no blood thinners. Related Data Home Medications Medication Instructions Recorded Confirmed [PROBIOTIC] 25,000,000 unit QDAY ##0 01/11/17 09/16/20 aspirin 81 mg chewable tablet 81 mg PO QDAY ##0 01/11/17 09/16/20 ibuprofen 200 mg capsule 400 mg TIDP PRN Pain (Scale Score 01/11/17 09/16/20 1-3) ##0 polyethylene glycol 3350 17 17 g DAILY 01/30/19 09/16/20 gram/dose oral powder (Miralax) capsicum (cayenne) 447 mg capsule mg PO 03/09/21 echinacea 250 mg capsule 250 mg PO DAILY 03/09/21 03/09/21 garlic 2,000 mg PO DAILY 03/09/21 03/09/21 Previous Rx's Medication Instructions Recorded hydroxyurea 500 mg capsule (Hydrea) 1,000 mg (2 x 500 mg) PO DAILY #60 05/19/20 caps hydroxyurea 500 mg capsule (Hydrea) 1,000 mg (2 x 500 mg) PO DAILY 07/15/20 #180 caps Allergies Allergy/AdvReac Type Severity Reaction Status Date / Time No Known Drug Allergies Allergy Verified 06/08/22 12:20 Review of Systems Review of Systems Narrative: GENERAL: See HPI HEENT: Denies sinus pain, ear pain, sore throat, difficulty swallowing, dizziness. RESPIRATORY: Denies dyspnea, cough, wheezing, hemoptysis, sputum. CARDIOVASCULAR: Denies chest pain, palpitations, orthopnea, edema, GASTROINTESTINAL: See HPI : Denies dysuria, frequency, incontinence, hematuria, urinary retention. MUSCULOSKELETAL: denies weakness, joint pain, or bony pain SKIN: See HPI NEUROLOGIC: Denies weakness, headache, numbness, change in speech, confusion, seizures, incoordination. PSYCHIATRIC: No concerning psychosocial issues. 12 point review of systems is negative except for those stated above Patient History Medical History (Updated 04/14/23 @ 11:33 by Dhruv Pereira DO) Polycythemia Social History Smoking Status: Former smoker Smoking Status: Current every day smoker alcohol intake frequency: holidays/special occasions only Substance Use Type: marijuana Exam Narrative Exam Narrative: GENERAL: [68] year old patient appears stated age. Thin, evidence of chronic illness, GCS 15 HEAD: Atraumatic. Normocephalic. EYES: Pupils equal round and reactive. Extraocular motions intact. No scleral icterus. No injection or drainage. ENT: Nose without bleeding, purulent drainage. Throat without erythema, tonsillar hypertrophy or exudate. Airway patent. NECK: Trachea midline. Non tender CARDIOVASCULAR: Regular rate and rhythm without murmurs, gallops, or rubs. RESPIRATORY: Clear to auscultation. Breath sounds equal bilaterally. No wheezes, rales, or rhonchi. GASTROINTESTINAL: Abdomen soft, firm, distended, tender EXTREMITIES: No edema or joint tenderness. BACK: Nontender without deformity or crepitance. No flank tenderness. NEURO: AOx3. SKIN: No rash or erythema of visible areas Initial Vital Signs Initial Vital Signs: Vital Signs Pulse Rate 76 04/14/23 07:43 Pulse Oximetry 99 04/14/23 07:43 Course Orders Ordered: ED Orders 04/14/23 08:00 Complete Blood Count AUTO DIFF Stat Comprehensive Metabolic Panel Stat Lactate (Lactic Acid) Stat Lipase Stat PTT Partial Thromboplastin Ricardo Stat Prothrombin Time INR Stat 04/14/23 08:44 CT abdomen pelvis w con Stat 04/14/23 11:44 COVID19 -Nasal RAPID Stat Sodium Chloride (Normal Saline 0.9%) 1,000 mls @ 150 mls/hr IV CONT SRINATH Last Admin: 04/14/23 14:58 Dose: 150 mls/hr Documented By: SB Discontinued Medications Hydromorphone HCl (Hydromorphone 0.5 Mg Inj) 0.5 mg IV NOW ONE Stop: 04/14/23 13:48 Last Admin: 04/14/23 14:01 Dose: 0.5 mg Documented By: RB Sodium Chloride (Normal Saline 0.9%) 1,000 mls @ 1,000 mls/hr IV BOLUS ONE Stop: 04/14/23 14:46 Last Infusion: 04/14/23 14:59 Dose: Infused Documented By: Admin: 04/14/23 14:01 Dose: 1,000 mls/hr Documented By: RB Sodium Chloride (Normal Saline 0.9%) 1,000 mls @ 1,000 mls/hr IV BOLUS ONE Stop: 04/14/23 15:12 Last Infusion: 04/14/23 14:58 Dose: Infused Documented By: Admin: 04/14/23 14:16 Dose: 1,000 mls/hr Documented By: RB Ondansetron HCl (Ondansetron 4 Mg/2 Ml Inj) 4 mg IV NOW ONE Stop: 04/14/23 13:48 Last Admin: 04/14/23 14:00 Dose: 4 mg Documented By: RB Consultations Consultation #1: discussed with Gen Surgery ([facility]), quickly states patient needs transfer for ERCP. Consultation #2: call to Dr. Shoemaker ([facility]) happy to consult, requests discussion with hospitalist and gen surgery call to Dr. Gunter ([facility] [place]) happy to consult on arrival, requests admission to hospitalist call to Dr. Almazan (Hospitalist) happy to accept Vital Signs Vital signs: Vital Signs - 8 hr 04/14/23 07:43 04/14/23 07:44 04/14/23 08:00 Temperature 97.7 F Pulse Rate 76 76 76 Respiratory Rate 18 23 Blood Pressure 162/79 H Pulse Oximetry 99 100 100 Oxygen Delivery Method Room Air 04/14/23 08:00 04/14/23 08:20 04/14/23 08:20 Temperature Pulse Rate 78 Respiratory Rate 20 Blood Pressure 158/80 H 141/74 H Pulse Oximetry 97 Oxygen Delivery Method 04/14/23 08:30 04/14/23 08:40 04/14/23 08:40 Temperature Pulse Rate 76 75 Respiratory Rate 25 H 29 H Blood Pressure 140/81 Pulse Oximetry 99 98 Oxygen Delivery Method 04/14/23 09:00 04/14/23 09:15 04/14/23 09:52 Temperature Pulse Rate 78 77 76 Respiratory Rate 23 18 Blood Pressure 140/80 Pulse Oximetry 99 99 Oxygen Delivery Method Room Air 04/14/23 09:53 04/14/23 09:53 04/14/23 10:00 Temperature Pulse Rate 79 77 Respiratory Rate 20 23 Blood Pressure 152/81 H Pulse Oximetry 97 Oxygen Delivery Method 04/14/23 10:00 04/14/23 10:20 04/14/23 10:20 Temperature Pulse Rate 79 Respiratory Rate 28 H Blood Pressure 138/74 151/78 H Pulse Oximetry 97 Oxygen Delivery Method 04/14/23 10:30 04/14/23 10:40 04/14/23 10:40 Temperature Pulse Rate 78 77 Respiratory Rate 25 H 25 H Blood Pressure 141/79 H Pulse Oximetry 98 98 Oxygen Delivery Method 04/14/23 11:55 04/14/23 12:00 04/14/23 12:30 Temperature Pulse Rate 77 77 79 Respiratory Rate 26 H 24 Blood Pressure Pulse Oximetry 97 98 97 Oxygen Delivery Method 04/14/23 13:00 04/14/23 13:00 04/14/23 13:20 Temperature Pulse Rate 73 71 Respiratory Rate 27 H 27 H Blood Pressure 136/73 Pulse Oximetry 97 98 Oxygen Delivery Method 04/14/23 13:20 04/14/23 13:30 04/14/23 14:00 Temperature Pulse Rate 70 71 Respiratory Rate 30 H 30 H Blood Pressure 146/73 H Pulse Oximetry 98 97 Oxygen Delivery Method 04/14/23 14:05 04/14/23 14:05 04/14/23 14:20 Temperature Pulse Rate 72 Respiratory Rate 27 H Blood Pressure 147/76 H 133/77 Pulse Oximetry 97 Oxygen Delivery Method 04/14/23 14:20 04/14/23 14:30 04/14/23 14:40 Temperature Pulse Rate 75 77 75 Respiratory Rate 22 23 24 Blood Pressure Pulse Oximetry 96 95 96 Oxygen Delivery Method 04/14/23 14:40 04/14/23 15:00 04/14/23 15:00 Temperature Pulse Rate 74 Respiratory Rate 21 Blood Pressure 139/80 140/78 Pulse Oximetry 95 Oxygen Delivery Method Medical Decision Making Lab Data 04/14/23 08:00 04/14/23 08:00 Labs: Lab Results 10/27/23 10/27/23 Range/Units 08:00 11:44 WBC 5.6 (4.5-11.0) X10^3/uL RBC 4.43 L (4.5-5.9) X10^6/uL Hgb 11.0 L (13.5-17.5) g/dL Hct 34.7 L (41-53) % MCV 78.4 L (80-100) fL MCH 24.9 L (26-34) PG MCHC 31.7 (30-36) % RDW 22.6 H (11.6-14.8) % Plt Count 258 (150-400) X10^3/uL Neut % (Auto) Not Reportable Lymph % (Auto) Not Reportable [place] % (Auto) Not Reportable Eos % (Auto) Not Reportable Baso % (Auto) Not Reportable Lymph # (Auto) Not Reportable [place] # (Auto) Not Reportable Baso # (Auto) Not Reportable Total Counted 50 Seg Neutrophils % 56.0 (38-70) % Band Neutrophils % 10.0 H (3-7) % Lymphocytes % (Manual) 18.0 L (25-45) % Atypical Lymphs % 4.0 H ( - 0) % Monocytes % (Manual) 6.0 (2-11) % Basophils % (Manual) 6.0 H (0-1) % Neutrophils # (Manual) 3696 (4071-0857) /uL RBC Morphology Not Reportable Anisocytosis 2+ H Tear Drop Cells 2+ H PT 16.8 H (10.1-12.7) SECONDS INR 1.5 H (0.9-1.3) APTT 39 H (26-36) SECONDS Sodium 137 (137-145) mmol/L Potassium 4.8 (3.4-5.1) mmol/L Chloride 103 (98-107) mmol/L Carbon Dioxide 28 (22-32) mmol/L BUN 16 (9-20) mg/dL Creatinine 0.81 (0.66-1.25) mg/dL Estimated GFR > 60 (>60) mL/min BUN/Creatinine Ratio 19.8 (6-22) Glucose 93 (80-110) mg/dL Lactate 0.8 (0.7-2.1) mmol/L Calcium 8.6 (8.4-10.2) mg/dL Total Bilirubin 2.5 H (0.2-1.3) mg/dL AST 77 H (17-59) IU/L ALT 60 H (<50) IU/L Alkaline Phosphatase 248 H (38-126) U/L Total Protein 6.9 (6.3-8.2) g/dL Albumin 3.9 (3.5-5.0) g/dL Globulin 3.0 (1.7-4.1) g/dL Albumin/Globulin Ratio 1.3 (1.0-2.8) Lipase 7475 H (23-300) U/L SARS-CoV-2 (PCR) Negative (Negative) Urine Dip Bedside Urine Glucose Negative Bedside Urine Bilirubin - Negative Bedside Urine Ketone - Negative Urine Specific [place] 1.010 Bedside Urine Occult Blood - Negative Bedside Urine pH 5.5 Bedside Urine Protein - Negative Bedside Urine Urobilinogen - Negative Bedside Urine Nitrite - Negative Bedside Urine Leukocytes - Negative Esterase Point of care testing: Urine Dip Bedside Urine Glucose Negative Bedside Urine Bilirubin - Negative Bedside Urine Ketone - Negative Urine Specific [place] 1.010 Bedside Urine Occult Blood - Negative Bedside Urine pH 5.5 Bedside Urine Protein - Negative Bedside Urine Urobilinogen - Negative Bedside Urine Nitrite - Negative Bedside Urine Leukocytes - Negative Esterase MDM Narrative Medical decision making narrative: [68] year old patient presents with abdominal pain Multiple etiologies for patient's symptoms considered including, but not limited to: [Bowel obstruction versus liver disease versus biliary obstruction versus pancreatitis versus splenic involvement versus other] Prior Charts reviewed in our EMR Primary Historian: patient Labs reviewed and interpreted by myself: Biliary obstruction pattern present with elevated bilirubin, LFTs and alk-phos, no leukocytosis or left shift Imaging reviewed: CT of abdomen and pelvis demonstrates a stone within the common bile duct and associated obstruction, no evidence of cholecystitis, no obstruction, spleen is quite enlarged but no interval change from prior imaging in 2019 Consultations: Multiple consultations as noted above Patient and family understand and agree with diagnosis and plan, patient requires transfer to facility capable of performing ERCP and other interventions and treatments as needed Critical Care Time Critical Care Time Critical Care Time: Yes Total Critical Care Time: 30 Attestation: The high probability of a clinically significant, sudden or life threatening deterioration of the [GI] system(s) required my full and direct attention, intervention and personal management. The aggregate critical care time was [30] minutes. This time is in addition to time spent performing reported procedures but includes the following: [x] Data Review and interpretation [x] Patient assessment and monitoring of vital signs [x] Documentation [x] Medication orders and management Discharge Plan Departure [facility] Clinical Impression: Acute gallstone pancreatitis, Choledocholithiasis with obstruction Prescriptions: No Action ibuprofen 200 MG capsule 400 mg TIDP PRN (Reason: Pain (Scale Score 1-3)) Qty: 0 aspirin 81 MG tablet,chewable 81 mg PO QDAY Qty: 0 [PROBIOTIC] 25,000,000 unit QDAY Qty: 0 polyethylene glycol 3350 [Miralax] 17 gram/dose Powder 17 g DAILY hydroxyurea [Hydrea] 500 mg Capsule 1,000 mg PO DAILY Qty: 60 12RF hydroxyurea [Hydrea] 500 mg Capsule 1,000 mg PO DAILY Qty: 180 3RF [place] PDR 447 mg Capsule PO Rx Instructions: pt unsure of dose garlic Capsule 2,000 mg PO DAILY Patient Comments: pt unsure of dose echinacea 250 mg Capsule 250 mg PO DAILY Patient Comments: PT UNSURE OF DOSE Referrals: Savage Malin MD [Primary Care Provider] -
[2023-04-14 08:35] LABS: INR 1.5 (0.9-1.3); Prothrombin Time 16.8 SECONDS (10.1-12.7)
[2023-04-14 08:38] LABS: PTT Partial Thromboplastin Tim 39 SECONDS (26-36)
[2023-04-14 08:39] LABS: Lactate (Lactic Acid) 0.8 mmol/L (0.7-2.1)
[2023-04-14 08:40] LABS: Alanine Aminotransferase 60 IU/L (<50); Albumin 3.9 g/dL (3.5-5.0); Albumin Globulin Ratio 1.3 (1.0-2.8); Alkaline Phosphatase 248 U/L (38-126); Aspartate Aminotransferase 77 IU/L (17-59); BUN Creatinine Ratio 19.8 (6-22); Bilirubin Total 2.5 mg/dL (0.2-1.3); Blood Urea Nitrogen 16 mg/dL (9-20); Calcium 8.6 mg/dL (8.4-10.2); Carbon Dioxide 28 mmol/L (22-32); Chloride 103 mmol/L (98-107); Estimated Glomerular Filt Rate > 60 mL/min (>60); Glucose 93 mg/dL (80-110); HEMOLYSIS 41 (0-50); Potassium 4.8 mmol/L (3.4-5.1); Sodium 137 mmol/L (137-145); Total Protein 6.9 g/dL (6.3-8.2)
[2023-04-14 08:41] LABS: Hematocrit 34.7 % (41-53); Mean Corpuscular HGB Conc 31.7 % (30-36); Mean Corpuscular Hemoglobin 24.9 PG (26-34); Mean Corpuscular Volume 78.4 fL (80-100); Red Blood Cell Count 4.43 X10^6/uL (4.5-5.9); Red Cell Distribution Width 22.6 % (11.6-14.8); White Blood Cell Count 5.6 X10^3/uL (4.5-11.0)
[2023-04-14 08:42] LABS: Add Manual Diff / Slide Review YES
--- NOTE | 2023-04-14 08:44 | DI.CT.S_ITS ---
PROCEDURE: CT ABDOMEN PELVIS W CON INDICATIONS: severe abdominal pain TECHNIQUE: After the administration of intravenous contrast, axial sections acquired from the lung bases to the pubic symphysis. Coronal and sagittal reformats were performed. For radiation dose reduction, the following was used: automated exposure control, adjustment of mA and/or kV according to patient size. COMPARISON: [facility], CT, CT ABDOMEN PELVIS W CON, 12/02/2018, 19:11. [facility], CT, ABDOMEN/PELVIS WITH CONTRAST, 07/21/2015, 10:30. FINDINGS: Image quality: Excellent. Lung bases: Trace left pleural effusion . Dependent atelectasis. Heart: Stable cardiomegaly. ABDOMEN: Liver: Stable subcentimeter hypodensity in segment 6. Gallbladder: Cholelithiasis with no wall thickening or pericholecystic fluid. Biliary ducts: Moderate intrahepatic biliary ductal dilatation with dilated CBD measuring 1.3 cm with tiny stone at the ampulla of Vater measuring 0.5 cm (2/52, 4/50). Pancreas: Unremarkable. Spleen: Compared to CT December 02, 2018, similar size of massive splenomegaly measuring 25.1 x 16.7 by 33.4 cm (2/32, 4/42), previously 24.3 x 15.2 x 31.4 (2/43, 4/32). Stable scarring in the lower peripheral aspect with trace perisplenic fluid (2/53). Adrenal Glands: Unremarkable. Kidneys and Ureters: Symmetric enhancement with no hydronephrosis or nephrolithiasis bilaterally. Stable inferomedial displacement and mass effect on the left kidney. Right upper pole simple cyst. Additional bilateral subcentimeter cortical hypodensities are too small to characterize, statistically cysts. Stomach and Bowel: Stomach appears grossly normal. Small and large bowel is normal in caliber, without obstruction. A few scattered sigmoid diverticuli, without diverticulitis. No pneumatosis, pneumoperitoneum or portal venous gas. Peritoneum: No abnormal intraperitoneal fluid. No free air. Ventral Wall: Tiny fat containing umbilical hernia. Abdominal Nodes: No retroperitoneal or mesenteric adenopathy by size criteria. Vessels: Mild calcification of the abdominal aorta and branch vessels, without aneurysm. Proximal mesenteric vessels are patent. Tortuous and enlarged left splenic vein and enlarged portal vein and branches. Main portal vein measures 2.3 cm (2/36). PELVIS: Pelvic Organs: Unremarkable. Bladder: Unremarkable. Pelvic Nodes: No enlarged lymph nodes. Miscellaneous: No hernias are seen. Bones: No acute fracture. No aggressive appearing lytic or blastic osseous lesion. Heterogeneous, sclerotic marrow, notably in the pelvic bones and proximal femurs, stable. IMPRESSION: 1. Obstructive choledocholithiasis with 0.5 cm stone at the ampulla of Vater with moderate upstream biliary ductal dilatation. CBD measures 1.3 cm. - Recommend gastroenterology consultation. 2. No acute cholecystitis. 3. Compared to CT dated December 02, 2018, stable massive splenomegaly consistent with history of polycythemia vera. 4. Enlarged portal vein and tortuous splenic vein, suggestive of portal hypertension. 5. Heterogeneous, sclerotic marrow, notably in the pelvic bones and proximal femurs, stable, suggestive of myelofibrosis. Findings were discussed with Dr. Pereira at 9:35 a.m. On April 14, 2023. Dictated by: Gamaliel Jones M.D. on 04/14/2023 at 9:24 Approved by: Gamaliel Jones M.D. on 04/14/2023 at 9:45
[2023-04-14 09:10] LABS: Anisocytosis 2+; Neutrophils Absolute Manual 3696 /uL (3000-5900); Tear Drop Cells 2+; Total Cells Counted 50
[2023-04-14 09:17] LABS: Platelet Count 258 X10^3/uL (150-400)
[2023-04-14 09:44] LABS: Lipase 7475 U/L (23-300)
[2023-04-14 12:08] LABS: COVID19 -Nasal RAPID Negative (Negative)
[2023-04-14] MEDS: ONDANSETRON 4 MG/2 ML INJ IV (14:00)
[2023-04-14] MEDS: SODIUM CHLORIDE 0.9% 1,000 ML 1000 ML IV ×2 (14:01→14:16)
[2023-04-14] MEDS: HYDROMORPHONE 0.5 MG INJ IV (14:01)
[2023-04-14] MEDS: SODIUM CHLORIDE 0.9% 1,000 ML 150 ML IV (14:58)
== END 2023-04-14 16:05 | disposition short-term general hospital (02) ==
PROVIDERS: Emergency Provider Emergency Medicine; Family Provider Family Medicine; PCP Internal Medicine Medical Oncology
DX: K85.10 Biliary acute pancreatitis without necrosis or infection (principal); K80.51 Calculus of bile duct without cholangitis or cholecystitis with obstruction; Z20.822 Contact with and (suspected) exposure to COVID-19
CPT/HCPCS: 36415; 74177; 80053; 81003; 83605; 83690; 85007; 85025; 85610; 85730; 87635; 96361; 96374; 96375; 99284; C9803; J1170; J2405; Q9967